=== PATIENT | male | born 1955 | race African-American/Black ===

== ENCOUNTER 2023-12-16 09:11 | Emergency (ER) | payer MEDICAID, OTHER ==
[~2023-12-16] VITALS: Ht 177.8 cm; Wt 81.0 kg
[2023-12-16 09:16] VITALS: O2SAT 98
[2023-12-16] MEDS ORDERED: ACETAMINOPHEN 325MG TABLET PO ONE (09:30)
[2023-12-16] MEDS ORDERED: TOPUD PO (11:04)
[2023-12-16 11:47] VITALS: BP 143/98; PULSE 63; RESP 18; TEMP 98.2
== END 2023-12-16 11:48 | disposition home or self-care (01) ==
LOC: ER 09:11
DX: S09.90XA Unspecified injury of head, initial encounter (principal); M25.512 Pain in left shoulder; I25.2 Old myocardial infarction; Z88.5 Allergy status to narcotic agent; W01.0XXA Fall on same level from slipping, tripping and stumbling without subsequent striking against object, initial encounter; Y93.89 Activity, other specified; Y92.89 Other specified places as the place of occurrence of the external cause; Y99.8 Other external cause status
CPT/HCPCS: 73030; 82962; 99284; A4565

== ENCOUNTER 2024-06-25 05:28 | Emergency (ER) | payer MEDICARE, MEDICAID ==
[~2024-06-25] VITALS: Ht 182.9 cm; Wt 66.0 kg
[~2024-06-25 05:28] MED LIST: TOPUD PO
[2024-06-25 05:43] VITALS: BP 147/93; PULSE 65; RESP 15; TEMP 98.3; O2SAT 100
== END 2024-06-25 08:15 | disposition home or self-care (01) ==
LOC: ER 05:28
DX: G89.29 Other chronic pain (principal); R51.9 Headache, unspecified; I25.2 Old myocardial infarction
CPT/HCPCS: 99281

== ENCOUNTER 2024-07-09 15:15 | Emergency (ER) | payer MEDICARE, MEDICAID ==
[~2024-07-09] VITALS: Ht 182.9 cm; Wt 66.0 kg
[2024-07-09 15:40] VITALS: O2SAT 96
[2024-07-09 16:29] LABS: BASOPHILS % 0.6 % (0.0-2.0); EOSINOPHILS % 0.1 % (0.0-5.0); HEMATOCRIT. 46.1 % (42.0-52.0); HEMOGLOBIN. 15.2 g/dL (14.0-18.0); LYMPHOCYTES % 11.1 % (20.0-50.0); MEAN CORPUSCULAR HEMOGLOBIN 31.4 pg (28.0-32.0); MEAN CORPUSCULAR VOLUME 95.2 fL (80.0-94.0); MEAN PLATELET VOLUME 7.7 fl (7.4-10.4); MONOCYTES % 6.1 % (2.0-8.0); NEUTROPHILS % 82.1 % (40.0-76.0); PLATELET 269 x1000/uL (130-400); RED BLOOD CELL COUNT 4.84 mill/uL (4.7-6.1); RED CELL DISTRIBUTION WIDTH 14.5 % (11.6-14.6); WHITE BLOOD COUNT 9.9 x1000/uL (4.5-11.0)
[2024-07-09 16:30] LABS: DIFFERENTIAL COMMENT 1
[2024-07-09 16:34] LABS: CHLORIDE 110 mEq/L (98-107); POTASSIUM 4.3 mEq/L (3.5-5.1); SODIUM 139 mEq/L (136-145)
[2024-07-09 16:35] LABS: CALCIUM 9.9 mg/dL (8.7-10.4); CARBON DIOXIDE 26 mEq/L (21-32)
[2024-07-09 16:40] LABS: CREATININE 1.5 mg/dL (0.6-1.3); GLUCOSE 132 mg/dL (70-105); UREA NITROGEN BLOOD 10 mg/dL (9-23)
[2024-07-09 16:42] LABS: ALANINE AMINOTRANSFERASE 13 IU/L (10-49); ALBUMIN 4.6 g/dL (3.2-4.8); ASPARTATE AMINOTRANSFERASE 23 IU/L (<34); BILIRUBIN DIRECT 0.3 mg/dL (<=3.0)
[2024-07-09 16:43] LABS: BILIRUBIN TOTAL 0.8 mg/dL (0.1-1.0); PROTEIN TOTAL 7.8 g/dL (6.0-8.3)
[2024-07-09 17:38] LABS: CLARITY URINE CLOUDY (CLEAR); COLOR URINE YELLOW (YELLOW); GLUCOSE URINE NEGATIVE (NEGATIVE); KETONES URINE TRACE (NEGATIVE); LEUKOCYTE ESTERASE URINE 2+ (NEGATIVE); NITRITE URINE NEGATIVE (NEGATIVE); OCCULT BLOOD URINE TRACE (NEGATIVE); PH URINE 8.5 (4.5-8.0); PROTEIN URINE TRACE (NEGATIVE); SPECIFIC GRAVITY URINE 1.017 (1.005-1.030)
[2024-07-09 18:04] LABS: BACTERIA URINE TRACE; RBC URINE 0-2 /hpf (0-2); SQUAMOUS EPITHELIAL CELL URINE FEW /lpf (RARE/1+); WBC URINE 50-100 /hpf (0-2)
[2024-07-09] MEDS: DIAZEPAM 5 MG TABLET PO ONE (18:58)
[2024-07-09] MEDS: KETOROLAC 30MG/ML VIAL IV ONE (19:16)
[2024-07-09] MEDS: SODIUM CHLORIDE 0.9% 1,000 ML IV ONE (19:16)
[2024-07-09] MEDS: ACETAMINOPHEN 1000MG/100ML 100 ML IV ONE (19:16)
[2024-07-09] MEDS: CEFTRIAXONE 1GM/50ML 50 ML IV ONE (20:54)
[2024-07-09] MEDS ORDERED: CEPH500T MT (21:20)
[2024-07-09] MEDS ORDERED: TAMS-11 MT (21:20)
[2024-07-09] MEDS ORDERED: NAPR220C61 MT (21:20)
[2024-07-09 22:21] VITALS: BP 150/85; PULSE 72; RESP 18; TEMP 36.44736; O2SAT 100
== END 2024-07-09 22:31 | disposition home or self-care (01) ==
LOC: ER 15:15
DX: N20.0 Calculus of kidney (principal); N39.0 Urinary tract infection, site not specified; I25.2 Old myocardial infarction; Z90.49 Acquired absence of other specified parts of digestive tract
CPT/HCPCS: 99285; 74176; 96365; 76700; 96367; 96375; 80076; 80048; 81003; 85025; 86850; 86900; 86901; 87086; 36415; 93005; J0696; J1885; J7030; J0131

== ENCOUNTER 2024-07-13 10:10 | Emergency (ER) | payer MEDICARE, MEDICAID ==
[~2024-07-13] VITALS: Ht 182.9 cm; Wt 67.0 kg
[~2024-07-13 10:10] MED LIST changes: +CEPH500T MT; +NAPR220C61 MT; +TAMS-11 MT
[2024-07-13 10:25] VITALS: O2SAT 99
[2024-07-13 10:52] LABS: BASOPHILS % 0.7 % (0.0-2.0); EOSINOPHILS % 0.9 % (0.0-5.0); HEMATOCRIT. 44.2 % (42.0-52.0); HEMOGLOBIN. 14.8 g/dL (14.0-18.0); LYMPHOCYTES % 22.8 % (20.0-50.0); MEAN CORPUSCULAR HEMOGLOBIN 32.1 pg (28.0-32.0); MEAN CORPUSCULAR HGB CONC 33.4 g/dL (31.0-37.0); MEAN PLATELET VOLUME 7.5 fl (7.4-10.4); MONOCYTES % 7.9 % (2.0-8.0); NEUTROPHILS % 67.7 % (40.0-76.0); PLATELET 224 x1000/uL (130-400); RED CELL DISTRIBUTION WIDTH 14.2 % (11.6-14.6)
[2024-07-13 11:00] LABS: CHLORIDE 108 mEq/L (98-107); POTASSIUM 3.5 mEq/L (3.5-5.1); SODIUM 138 mEq/L (136-145)
[2024-07-13 11:01] LABS: CARBON DIOXIDE 21 mEq/L (21-32)
[2024-07-13 11:02] LABS: CALCIUM 9.1 mg/dL (8.7-10.4)
[2024-07-13 11:06] LABS: CREATININE 1.4 mg/dL (0.6-1.3); GLUCOSE 89 mg/dL (70-105); UREA NITROGEN BLOOD 13 mg/dL (9-23)
[2024-07-13 11:12] LABS: CLARITY URINE CLOUDY (CLEAR); COLOR URINE YELLOW (YELLOW); GLUCOSE URINE NEGATIVE (NEGATIVE); KETONES URINE 3+ (NEGATIVE); LEUKOCYTE ESTERASE URINE 2+ (NEGATIVE); NITRITE URINE NEGATIVE (NEGATIVE); OCCULT BLOOD URINE 3+ (NEGATIVE); PH URINE 5.5 (4.5-8.0); PROTEIN URINE 1+ (NEGATIVE); SPECIFIC GRAVITY URINE 1.018 (1.005-1.030); UROBILINOGEN URINE 0.2 E.U./dL (0.2-1.0)
[2024-07-13] MEDS: KETOROLAC 15MG/ML VIAL IM ONE (11:17)
[2024-07-13] MEDS: ONDANSETRON 4MG ODT PO ONE (11:17)
[2024-07-13 11:33] LABS: RBC URINE 25-50 /hpf (0-2); SQUAMOUS EPITHELIAL CELL URINE FEW /lpf (RARE/1+); WBC URINE 50-100 /hpf (0-2)
[2024-07-13 11:34] LABS: BACTERIA URINE 1+; YEAST URINE NONE SEEN
[2024-07-13] MEDS ORDERED: MAGNESIUM/ALUMINUM HYDROXIDE/SIMETHICONE 30ML UDC PO PRN (13:30)
[2024-07-13] MEDS ORDERED: ACETAMINOPHEN 325MG TABLET PO PRN ×2 (13:30)
[2024-07-13] MEDS ORDERED: GUAIFENESIN 200MG/10ML SUGAR FREE UDC PO PRN (13:30)
[2024-07-13] MEDS ORDERED: IPRATROPIUM/ALBUTEROL 0.5-3(2.5)MG/3ML NEB NEB PRN (13:30)
[2024-07-13] MEDS ORDERED: SODIUM CHLORIDE 0.9% 1000ML BAG (SEPSIS BOLUS) IV ONE (13:30)
[2024-07-13] MEDS ORDERED: KETOROLAC 15MG/ML VIAL IV PRN (13:30)
[2024-07-13] MEDS ORDERED: DOCUSATE SODIUM 100MG CAPSULE PO PRN (13:30)
[2024-07-13] MEDS ORDERED: NITROGLYCERIN 0.4MG TABLET SL SL PRN (13:30)
[2024-07-13] MEDS ORDERED: ONDANSETRON HCL 4MG/2ML INJ IV PRN (13:30)
[2024-07-13] MEDS ORDERED: CEFTRIAXONE 1GM/50ML 50 ML IV SCH (13:30)
[2024-07-13] MEDS ORDERED: SODIUM CHLORIDE 0.9% IV SCH (13:45)
[2024-07-13] MEDS ORDERED: TAMSULOSIN HCL 0.4MG SR CAPSULE PO SCH (14:00)
[2024-07-13] MEDS ORDERED: ENOXAPARIN 40MG/0.4ML SYR SUBCUT SCH (14:00)
[2024-07-13] MEDS ORDERED: LACTATED RINGERS 1,000 ML IV SCH (14:00)
[2024-07-13] MEDS ORDERED: PANTOPRAZOLE SODIUM 40 MG/VIAL IV SCH (14:00)
[2024-07-13] MEDS ORDERED: LEVOFLOXACIN 500MG PREMIX 100 ML IV SCH (14:00)
[2024-07-13 14:21] LABS: IRON 53 ug/dL (65-175)
[2024-07-13 14:24] LABS: TOTAL IRON BINDING CAPACITY 431 ug/dl (250-425)
[2024-07-13 14:26] LABS: T4 FREE 1.08 ng/dL (0.89-1.76)
[2024-07-13 14:27] LABS: THYROID STIMULATING HORMONE 1.12 uIU/mL (0.55-4.78)
[2024-07-13 14:31] LABS: FOLIC ACID (FOLATE) SERUM 13.67 ng/mL (>5.38); VITAMIN B12 SERUM 321 pg/mL (211-911)
[2024-07-13 14:47] VITALS: BP 150/91; PULSE 89; RESP 16; TEMP 37.22520; O2SAT 97
[2024-07-13] MEDS ORDERED: ZOLPIDEM TARTRATE 5MG TABLET PO PRN (21:00)
== END 2024-07-13 14:52 | disposition home or self-care (01) ==
LOC: ER 10:29 → EDBEDREQTM 13:19 → EDBEDREQ 13:19 → CANBEDREQ 14:49 → ER 14:52
DX: R31.9 Hematuria, unspecified (principal); N20.0 Calculus of kidney; I25.2 Old myocardial infarction; Z90.49 Acquired absence of other specified parts of digestive tract
CPT/HCPCS: 99285; 93970; 76770; 80048; 81003; 82607; 82746; 83036; 84439; 83540; 83550; 84443; 85025; 86850; 86900; 86901; 87086; 36415; 84145; 96372; Q0162; J1885

== ENCOUNTER 2025-04-07 07:37 | Emergency (ER) | payer BC, MEDICAID ==
[~2025-04-07] VITALS: Ht 182.9 cm; Wt 67.0 kg
[~2025-04-07 07:37] MED LIST changes: -TAMS-11 MT; +TAMS-54 MT
[2025-04-07 07:45] VITALS: O2SAT 100
[2025-04-07] MEDS: KETOROLAC 30MG/ML VIAL IM STA (09:13)
[2025-04-07 09:55] VITALS: BP 149/98; PULSE 66; RESP 16; TEMP 36.7; O2SAT 100
== END 2025-04-07 09:57 | disposition home or self-care (01) ==
LOC: ER 07:37
DX: M54.2 Cervicalgia (principal); R51.9 Headache, unspecified; M25.511 Pain in right shoulder; Z88.5 Allergy status to narcotic agent; Z90.49 Acquired absence of other specified parts of digestive tract; Z79.899 Other long term (current) drug therapy
CPT/HCPCS: 99285; 70450; 73560; 72125; 96372; J1885; A4606